=== PATIENT | female | born 2000 | race Two or more races ===

== ENCOUNTER 2020-12-26 19:49 | Emergency (ER) | payer MEDICAID ==
[~2020-12-26] VITALS: Ht 170.2 cm; Wt 61.0 kg
[2020-12-26] MEDS ORDERED: SODIUM CHLORIDE 0.9% 1,000 ML IV ONE (20:15)
[2020-12-26 21:29] LABS: BASOPHILS % 0.2 % (0.0-2.0); EOSINOPHILS % 0.4 % (0.0-5.0); HEMATOCRIT. 37.5 % (36.0-48.0); HEMOGLOBIN. 12.5 g/dL (12.0-16.0); LYMPHOCYTES % 26.7 % (20.0-50.0); MEAN CORPUSCULAR HEMOGLOBIN 30.1 pg (28.0-32.0); MEAN CORPUSCULAR VOLUME 90.3 fL (81.0-99.0); MONOCYTES % 6.5 % (2.0-8.0); NEUTROPHILS % 66.2 % (40.0-76.0); PLATELET 151 x1000/uL (130-400); RED BLOOD CELL COUNT 4.16 mill/uL (4.2-5.4); RED CELL DISTRIBUTION WIDTH 13.7 % (11.6-14.6)
[2020-12-26 21:37] LABS: CHLORIDE 112 mEq/L (98-107)
[2020-12-26 21:41] LABS: ETHANOL BLOOD < 10 mg/dL
[2020-12-26 22:26] VITALS: BP 120/71
[2020-12-26 22:27] LABS: INR 1.1; PARTIAL THROMBOPLASTIN TIME 31.6 sec (23.4-31.0)
== END 2020-12-26 22:39 | disposition home or self-care (01) ==
LOC: ER 19:49
DX: T60.4X2A Toxic effect of rodenticides, intentional self-harm, initial encounter (principal); R10.13 Epigastric pain; F32.9 Major depressive disorder, single episode, unspecified; Z20.822 Contact with and (suspected) exposure to COVID-19; Y92.59 Other trade areas as the place of occurrence of the external cause
CPT/HCPCS: 36415; 80053; 80307; 80320; 80329; 85025; 99284; G0480